=== PATIENT | female | born 1965 | race American Indian/Alaskan Native ===

== ENCOUNTER 2019-03-30 06:03 | Day surgery (SDC) | payer MEDICARE ==
[2019-03-30] MEDS ORDERED: NACL 0.9% 1000 ML 1,000 ML IV SCH (07:00)
[2019-03-30] MEDS ORDERED: WATER FOR IRRIG STERILE IR ONE (07:31)
--- NOTE | 2019-03-30 07:35 | Anesthesia Consultation ---
Anesthesia Consult and Med Hx Date of service: 03/30/19 - Airway Anesthetic Teeth Evaluation: Good ROM Head & Neck: Adequate Mental/Hyoid Distance: Adequate Mallampati Class: Class III Intubation Access Assessment: Possibly Difficult - Pre-Operative Health Status ASA Pre-Surgery Classification: ASA3 Proposed Anesthetic Plan: MAC - Pulmonary Hx Smoking: Yes (former smoker 30 p/year history) Hx Asthma: Yes SOB: Yes COPD: Yes Hx Sleep Apnea: Yes - Cardiovascular System Hx Hypertension: Yes - Central Nervous System Hx Back Pain: Yes Hx Psychiatric Problems: Yes (anxiety) - Endocrine Hx Non-Insulin Dependent Diabetes: Yes - Other Systems Hx Obesity: Yes (BMI 57.8)
--- NOTE | 2019-03-30 07:36 | Anesthesia Day of Surgery ---
Anesthesia Day of Surgery - Day of Surgery Patient Examined: Yes Patient H&P Reviewed: Yes Patient is NPO: Yes
[2019-03-30] MEDS ORDERED: DIPRIVAN 10 MG/ML IV ONE (07:38)
[2019-03-30] MEDS ORDERED: WATER FOR IRRIG STERILE ONE (07:39)
--- NOTE | 2019-03-30 08:16 | Operative Report ---
PREOPERATIVE DIAGNOSIS: Morbid obesity. POSTOPERATIVE DIAGNOSIS: Small hiatal hernia. PROCEDURE: EGD. ANESTHESIA: MAC. COMPLICATIONS: None. SPECIMENS: None. BLEEDING: None. INDICATIONS: The patient is a 53-year-old female with a history of morbid obesity. She is here for preoperative EGD in preparation for her weight loss surgery. Informed consent was obtained. DESCRIPTION OF PROCEDURE: The patient was brought to the GI suite where she was placed in the left lateral decubitus position and underwent MAC anesthesia. A bite block was placed and a timeout was called. A standard adult gastroscope was inserted into the oropharynx and the stomach into the first portion of the duodenum. On retroflexion view, she was noted to have a very small type 1 sliding hiatal hernia. There were no other abnormalities. With this, the air was desufflated. The gastroscope was removed. The patient tolerated the procedure well with no immediate complications and was transferred to the PACU in stable condition. JOB# [id number] ARMIDA/LAUREN
[2019-03-30 08:39] VITALS: BP 140/75
== END 2019-03-30 06:04 | disposition home or self-care (01) ==
LOC: GIO 06:03
PROVIDERS: ATTEND Specialist
DX: K30 Functional dyspepsia (principal); E66.01 Morbid (severe) obesity due to excess calories; K44.9 Diaphragmatic hernia without obstruction or gangrene; J44.9 Chronic obstructive pulmonary disease, unspecified; G47.30 Sleep apnea, unspecified; E11.9 Type 2 diabetes mellitus without complications; F41.9 Anxiety disorder, unspecified; Z98.890 Other specified postprocedural states; Z98.891 History of uterine scar from previous surgery; Z68.43 Body mass index [BMI] 50.0-59.9, adult; Z79.899 Other long term (current) drug therapy; Z91.040 Latex allergy status; Z79.84 Long term (current) use of oral hypoglycemic drugs; Z98.51 Tubal ligation status
CPT/HCPCS: 43235; 82962; J2704; J7030

== ENCOUNTER 2019-04-06 06:22 | Inpatient (IN) | payer MEDICARE ==
[2019-04-06] MEDS ORDERED: ZOFRAN IV PRN (06:31)
[2019-04-06] MEDS ORDERED: MORPHINE IV PRN (06:31)
[2019-04-06] MEDS ORDERED: DILAUDID IV PRN (06:31)
[2019-04-06] MEDS ORDERED: NORCO PO PRN (06:31)
[2019-04-06] MEDS ORDERED: REGLAN IV PRN (06:31)
[2019-04-06] MEDS ORDERED: FLAGYL 500 MG/100 ML 500 MG/100 ML BAG IV NR (07:00)
[2019-04-06] MEDS ORDERED: LOVENOX SUB-Q NR (07:00)
[2019-04-06] MEDS ORDERED: ANCEF/STERILE WATER 2 GM/20 ML 2 GM/20 ML SYRINGE IV NR (07:00)
[2019-04-06] MEDS ORDERED: TRANSDERM-SCOP TD SCH (07:00)
[2019-04-06] MEDS ORDERED: MARCAINE-EPI 0.5%-1:200,000 INFILTRATI ONE ×2 (07:21→11:44)
[2019-04-06] MEDS ORDERED: XYLOCAINE 1% 20 mL ONE (07:21)
--- NOTE | 2019-04-06 07:55 | Anesthesia Day of Surgery ---
Anesthesia Day of Surgery - Day of Surgery Patient Examined: Yes Patient H&P Reviewed: Yes Patient is NPO: Yes
--- NOTE | 2019-04-06 08:01 | Anesthesia Consultation ---
Anesthesia Consult and Med Hx Date of service: 04/06/19 - Airway Anesthetic Teeth Evaluation: Good ROM Head & Neck: Adequate Mental/Hyoid Distance: Adequate Mallampati Class: Class II Intubation Access Assessment: Good - Pre-Operative Health Status ASA Pre-Surgery Classification: ASA3 Proposed Anesthetic Plan: General - Pulmonary Hx Smoking: Yes (SINCE AGE 16; QUIT 2008) Hx Asthma: Yes SOB: Yes (WITH EXERTION) COPD: Yes Hx Sleep Apnea: Yes - Cardiovascular System Hx Hypertension: Yes (2008) Hx Coronary Artery Disease: No (ETT [id number]; ECHO [id number]) - Central Nervous System Hx Back Pain: Yes Hx Psychiatric Problems: Yes - Endocrine Hx Non-Insulin Dependent Diabetes: Yes - Other Systems Hx Alcohol Use: Yes Hx Obesity: Yes
[2019-04-06] MEDS: LACTATED RINGERS 1,000 ML IV SCH ×3 (08:09→22:05)
[2019-04-06 08:25] LABS: Bacteria,Urine 1+ /HPF (Negative); Bilirubin,Urine NEG (Negative); Blood,Urine NEG (Negative); Color,Urine Amber (Yellow); Mucus,Urine FEW /HPF; Protein,Urine <15 mg/dL mg/dL (Negative)
[2019-04-06] MEDS ORDERED: LOVENOX SUB-Q SCH (10:00)
[2019-04-06] MEDS ORDERED: SUBLIMAZE ONE (10:41)
[2019-04-06] MEDS ORDERED: DIPRIVAN 10 MG/ML IV ONE (10:42)
[2019-04-06] MEDS ORDERED: QUELICIN ONE (11:02)
[2019-04-06] MEDS ORDERED: NACL 0.9% IR ONE ×2 (11:45→12:47)
[2019-04-06] MEDS ORDERED: XYLOCAINE 1% 20 mL INFILTRATI ONE (11:45)
[2019-04-06] MEDS ORDERED: XYLOCAINE MPF 2% ONE (12:09)
[2019-04-06] MEDS ORDERED: PROAIR IH ONE (12:09)
[2019-04-06] MEDS ORDERED: ZEMURON IV ONE (12:09)
[2019-04-06] MEDS ORDERED: BLOXIVERZ ONE (12:44)
[2019-04-06] MEDS ORDERED: ROBINUL ONE (12:44)
[2019-04-06] MEDS ORDERED: LACTATED RINGERS 1,000 ML ONE (12:44)
[2019-04-06] MEDS ORDERED: ZOFRAN ONE (12:48)
[2019-04-06] MEDS ORDERED: DILAUDID ONE (13:00)
[2019-04-06] MEDS: DILAUDID IV PRN ×3 (13:30→21:59)
[2019-04-06] MEDS: MYLICON PO PRN (15:13)
[2019-04-06] MEDS: APRESOLINE IV PRN ×2 (15:13→22:01)
[2019-04-07] MEDS: APRESOLINE IV PRN (06:26)
[2019-04-07] MEDS: LACTATED RINGERS 1,000 ML IV SCH (06:31)
--- NOTE | 2019-04-07 07:21 | Discharge Summary ---
Providers - Providers Date of Admission: 04/06/19 06:22 Date of discharge: 04/07/19 Attending physician: CLAUDIO LEBRON Primary care physician: STEFANIA CABA Hospitalization Reason for admission: postop Condition: Good Procedures: 04/06/19: Laparoscopic sleeve gastrectomy Hospital course: 53F admitted after her operation for routine postop care. She had no major issues, tolerated a CLD, ambulated and was dc home POD1. Disposition: DC-01 TO HOME OR SELFCARE Core Measure Documentation - Palliative Care Palliative Care/ Comfort Measures: Not Applicable - Core Measures Any of the following diagnoses?: none - VTE Discharge Requirements Deep Vein Thrombosis/Pulmonary Embolism Present on Admission: No - Acute IA Discharge Requirements Aspirin at discharge: No Reason for no aspirin on DC: Surgical contraindication - Heart Failure Discharge Requirements RAFFY/ARB for LVSD if EF <40%: Not Applicable - Stroke Discharge Requirements Statin for LDL = or >70 mg/dl on DC: Not Applicable Exam - Physical Exam Narrative exam: Gen: AAO, NAD Heart: RRR Lungs: Clear Abd: MO, soft, NT, ND, bandages c/d/i - Constitutional Vitals: Temp Pulse Resp BP Pulse Ox 98.9 F 100 H 22 192/96 99 04/07/19 05:05 04/07/19 06:26 04/07/19 05:05 04/07/19 06:26 04/07/19 05:05 Plan Diet: clear liquids Wound: keep clean and dry Special Instructions: no heavy lifting Additional Instructions: Jesus Lebron as scheduled Follow up with: STEFANIA CABA MD [Primary Care Provider] - 7 Days
[2019-04-07 07:28] VITALS: BP 183/86
[2019-04-07] MEDS ORDERED: LOVENOX SUB-Q SCH (10:00)
[2019-04-07] MEDS: MYLICON PO PRN (10:21)
[2019-04-07 12:18] LABS: Basophils % (Auto) 0.2 % (0.0-1.8); Hematocrit 40.5 % (30.3-42.9); Hemoglobin 13.4 gm/dl (10.1-14.3); Lymphocytes # (Auto) 1.2 K/mm3 (1.2-5.4); Lymphocytes % (Auto) 16.1 % (13.4-35.0); Mean Corpuscular HGB Conc 33 % (30-34); Mean Corpuscular Volume 78 fl (79-97); Monocytes # (Auto) 0.5 K/mm3 (0.0-0.8); Monocytes % (Auto) 7.2 % (0.0-7.3); Platelet Count 312 K/mm3 (140-440); Red Blood Count 5.17 M/mm3 (3.65-5.03); Red Cell Distribution Width 15.6 % (13.2-15.2)
[2019-04-07 12:33] LABS: Alanine Aminotransferase 27 units/L (7-56); Albumin 3.9 g/dL (3.9-5); BUN/Creatinine Ratio 7; Blood Urea Nitrogen 4 mg/dL (7-17); Calcium 9.4 mg/dL (8.4-10.2); Hemolysis Index 7
== END 2019-04-07 12:45 | disposition home or self-care (01) | DRG 621 ==
LOC: 3A 06:22 → 3B-SURG 13:53
PROVIDERS: ADMIT Specialist; ATTEND Specialist
PROC: 0DB64Z3 Excision of Stomach, Percutaneous Endoscopic Approach, Vertical (ICD-10-PCS; principal; 2019-04-06)
PROC: 0BQT4ZZ Repair Diaphragm, Percutaneous Endoscopic Approach (ICD-10-PCS; 2019-04-06)
PROC: 0DN64ZZ Release Stomach, Percutaneous Endoscopic Approach (ICD-10-PCS; 2019-04-06)
PROC: 0DN84ZZ Release Small Intestine, Percutaneous Endoscopic Approach (ICD-10-PCS; 2019-04-06)
DX: E66.01 Morbid (severe) obesity due to excess calories (principal); J44.9 Chronic obstructive pulmonary disease, unspecified; E03.9 Hypothyroidism, unspecified; G47.33 Obstructive sleep apnea (adult) (pediatric); M12.9 Arthropathy, unspecified; I10 Essential (primary) hypertension; F41.9 Anxiety disorder, unspecified; Z98.51 Tubal ligation status; Z88.3 Allergy status to other anti-infective agents; Z82.49 Family history of ischemic heart disease and other diseases of the circulatory system; Z87.891 Personal history of nicotine dependence; Z68.43 Body mass index [BMI] 50.0-59.9, adult; E11.9 Type 2 diabetes mellitus without complications
CPT/HCPCS: 36415; 80053; 81001; 82962; 85025; 88307; G0378; A4217; J0330; J0360; J0690; J1170; J1650; J2270; J2405; J2704; J2710; J3010; J7120